=== PATIENT | female | born 1970 | race Caucasian/White ===

== ENCOUNTER 2024-07-16 09:24 | Day surgery (SDC) | payer OTHER ==
[~2024-07-16] VITALS: Ht 165.1 cm; Wt 69.0 kg
[~2024-07-16 09:24] MED LIST: BUPROPION XL150 MG PO; CARAFATE1 GM PO; IBLOOD GLUCOSE TEST STRIP 1 EA TEST VI PRN; LACTATED RINGER'S 1,000 ML IV SCH; LIDOCAINE HCL 1% 5 ML SDV INJ ONE; MIDAZOLAM HCL 5 MG/5 ML VIAL IV PRN; MULTI VITAMIN1 EACH PO; PROTONIX40 MG PO; TURMERIC500 M3 PO; VICODIN 5-3001 EACH PO; fentaNYL citrate 100 MCG/2 ML VIAL IV PRN
[2024-07-16 09:53] VITALS: BP 120/74
[2024-07-16] MEDS ORDERED: fentaNYL citrate 100 MCG/2 ML VIAL ONE (10:33)
[2024-07-16] MEDS ORDERED: MIDAZOLAM HCL 5 MG/5 ML VIAL ONE ×2 (10:33→11:23)
--- NOTE | 2024-07-16 11:54 | NUR ---
07/16/24 1154 Jovanna Cardona 1148-PT TO PACU IN LL POSITION. EYES CLOSED. PT DOES NOT RESPOND TO VERBAL STIMULI. BREATHING EASY AND UNLABORED. SPO2 >95% ON 3 L O2 VIA NC. 1152-PT AWAKENS TO VERBAL AND TACTILE STIMULI. DOES NOT OPEN EYES BUT SHAKES HEAD AND SAYS "NO" WHEN ASKED ABOUT ABDOMINAL PAIN. BREATHING EASY AND UNLABORED. LIGHT INTERMITTANT SNORING. SPO2 >95% ON 3L O2 VIA NC.
[2024-07-16 13:01] VITALS: BP 112/72
--- NOTE | 2024-07-16 16:09 | OR ---
[facility] [address], [place] [address] Signed DATE OF OPERATION: 07/16/2024 SURGEON: Biju Tapia MD PREOPERATIVE DIAGNOSES: Screening. POSTOPERATIVE DIAGNOSES: 1. A 4 mm polyps x2 at 6 cm in rectum. 2. 6 mm and 12 mm polyp at 8 cm in the posterior midline of rectum (clip, tattoo, snare). 3. 7 mm sessile polyp at 5 cm anterior midline of rectum (snare, clip). 4. 4 mm cecal/periappendiceal polyp. 5. 5 mm polyp at proximal transverse colon. 6. 6 mm polyp at 22 cm in sigmoid colon. 7. 4 mm polyp at 10 cm in the rectum. 8. Dnxxelu-[id number] sigmoid diverticulosis. 9. A long redundant colon. 10. Tortuous left and transverse colon. PROCEDURES: 1. Colonoscopy with snare polypectomy x2, hot biopsies, application of clips x2 and injection of tattoo x1. 2. Rigid proctoscopy. ESTIMATED BLOOD LOSS: None. INDICATIONS FOR THE PROCEDURE: Laisha is a 53-year-old female asked to see me for her initial screening colonoscopy. She gives no lower GI complaints. There is no family history of colon cancer or polyps. In the office, I gave her a pamphlet on colonoscopy. We had discussed the nature of the test. There is risk including, but not limited to gas bloating, crampy abdominal pain, bleeding, perforation requiring surgery, and missed diagnosis. We also reviewed the written instructions for the bowel prep line by line. She also understands the need for IV conscious sedation. She understands an adult person asked to take her home afterwards. She had expressed understanding and wished to proceed. DESCRIPTION OF PROCEDURE: Laisha was taken into our endoscopy suite and placed in the left lateral decubitus position. She was given divided doses of 11 mg of Versed and 200 mcg of fentanyl to Electronically Signed By: BIJU TAPIA MD 07/16/24 1609 PATIENT NAME: LAISHA HOFFMAN OPERATIVE REPORT DATE OF : 74 REPORT #: [id number] PHYSICIAN: BIJU TAPIA MD PCP: MECHE CLIFFORD MD REPORT IS CONFIDENTIAL AND NOT TO BE RELEASED WITHOUT AUTHORIZATION [facility] [address], [place] [address] Signed cover this long case. Even then, she does have a long redundant and tortuous colon. She is very close to needing propofol. Fortunately, her prep was good. We had initially made our way to the cecum. We could easily see the appendiceal orifice and ileocecal valve. The above-mentioned polyps have been removed with the help of hot biopsy forceps. We lost one of the polyps either in the proximal transverse colon or possibly the cecum. We did use the snare back at 8 cm and at 5 cm. We put a clip on both of these polypectomy sites. We injected a tattoo at 8 cm. We did see some diverticula in the sigmoid colon. They were moderate in size, few in number and scattered about. We had retroflexed the scope in the rectum and we did not see any obvious pathology immediately above the anal canal. After this, the colonoscope was removed. The rigid proctoscope was then inserted and we quickly found the clip in the anterior midline at 5 cm. It took just a minute to get the rigid proctoscope posteriorly and we found the other clip and tattoo at 8 cm in the posterior midline. It was right on the first haustral fold. After this, the gas was allowed to escape and the rigid proctoscope was removed. Overall, Laisha tolerated the procedure well. RECOMMENDATIONS: I will see Laisha back in my office in 7 to 14 days to review her results. She will need a followup colonoscopy on a short interval given the size and number of polyps that she had. Biju Tapia MD ALB/MODL /[id number] cc: Meche Clifford MD Patient Chart Biju Tapia MD Electronically Signed By: BIJU TAPIA MD 07/16/24 1609 PATIENT NAME: LAISHA HOFFMAN OPERATIVE REPORT DATE OF : 74 REPORT #: [id number] PHYSICIAN: BIJU TAPIA MD PCP: MECHE CLIFFORD MD REPORT IS CONFIDENTIAL AND NOT TO BE RELEASED WITHOUT AUTHORIZATION [facility] [address] [place] [address] [place], [place] [address] Signed Copies: BIJU TAPIA MD ~ Electronically Signed By: BIJU TAPIA MD 07/16/24 1609 PATIENT NAME: LAISHA HOFFMAN OPERATIVE REPORT DATE OF : 74 REPORT #: [id number] PHYSICIAN: BIJU TAPIA MD PCP: MECHE CLIFFORD MD REPORT IS CONFIDENTIAL AND NOT TO BE RELEASED WITHOUT AUTHORIZATION
--- NOTE | 2024-07-18 11:31 | PATH ---
[facility] [address] [place] [address] Signed SPECIMEN(S): A RECTAL POLYP AT 6 CM SPECIMEN(S): B RECTAL POLYP AT 5 CM SPECIMEN(S): C RECTAL POLYP AT 8 CM SPECIMEN(S): D RECTAL POLYP AT 5 CM SPECIMEN(S): E PROXIMAL TRANSVERSE POLYP SPECIMEN(S): F SIGMOID POLYP AT 22 CM SPECIMEN(S): G RECTAL POLYP AT 10 CM SPECIMEN SOURCE: A. RECTAL POLYP AT 6 CM B. RECTAL POLYP AT 5 CM C. RECTAL POLYP AT 8 CM D. RECTAL POLYP AT 5 CM E. PROXIMAL TRANSVERSE POLYP F. SIGMOID POLYP AT 22 CM G. RECTAL POLYP AT 10 CM CLINICAL HISTORY: Screening. Post: Polyps FINAL PATHOLOGIC DIAGNOSIS: A. Rectum, 6 cm, polypectomy: - Hyperplastic polyp B. Rectum, 5 cm, polypectomy: - Tubular adenoma C. Rectum, 8 cm, polypectomies: - Tubular adenoma (multiple fragments) - Hyperplastic polyp (one fragment) D. Rectum, 5 cm, polypectomy: - Hyperplastic polyp E. Colon, proximal transverse, polypectomy: - Hyperplastic polyp F. Colon, sigmoid at 22 cm, polypectomy: - Hyperplastic polyp G. Rectum, 10 cm, polypectomy: - Hyperplastic polyp BRP MICROSCOPIC EXAMINATION: Histologic sections of all submitted blocks are examined by light microscopy. These findings, together with the gross examination, support the pathologic PATIENT NAME: ALLEN HOFFMAN PATHOLOGY DATE OF : 74 REPORT #: [id number] PHYSICIAN: LOY HUDSON PCP: ANA DOAN MD REPORT IS CONFIDENTIAL AND NOT TO BE RELEASED WITHOUT AUTHORIZATION [facility] [address] [place], [place] [address] Signed diagnosis. GROSS DESCRIPTION: A. The specimen, labeled and designated "Hoffman, K, rectal polyp at 6 cm," is received in formalin and consists of two mckeon soft tissue fragments, ranging from 0.2-0.3 cm. Entirely submitted in (A1). B. The specimen, labeled and designated "Hoffman, K, rectal polyp at 5 cm," is received in formalin and consists of five mckeon soft tissue fragments, ranging from 0.2-0.9 cm. Entirely submitted in (B1). C. The specimen, labeled and designated "Hoffman, K, rectal polyps at 8 cm," is received in formalin and consists of multiple mckeon soft tissue fragments, 0.1-0.5 cm. Entirely submitted in (C1). D. The specimen, labeled and designated "Hoffman, K, rectal polyp of 5 cm," is received in formalin and consists of two mckeon soft tissue fragments, ranging from 0.2-0.3 cm. Entirely submitted in (D1). E. The specimen, labeled and designated "Hoffman, K, proximal transverse polyp," is received in formalin and consists of one mckeon soft tissue fragment, 0.2 cm. Entirely submitted in (E1). F. The specimen, labeled and designated "Hoffman, K, sigmoid polyp at 22 cm," is received in formalin and consists of one mckeon soft tissue fragment, 0.3 cm. Entirely submitted in (F1). G. The specimen, labeled and designated "Hoffman, K, rectal polyp at 10 cm," is received in formalin and consists of one mckeon soft tissue fragment, 0.3 cm. Entirely submitted in (G1). AB (under the direct supervision of a pathologist) The Gross Description was prepared using a voice recognition system. The report was reviewed for accuracy; however, sound-alike word errors, addition and/or deletions may occur. If there is any question about this report, please contact Client Services. ADDITIONAL NOTES: Immunohistochemical and/or in situ hybridization studies if performed in this case included appropriate positive controls that reacted as expected. This test was developed and its performance characteristics determined by [facility]. It has not been cleared or approved by the U.S. Food and Drug Administration. The FDA has determined that such clearance or approval is not necessary. This test is used for clinical purposes. It should not be regarded PATIENT NAME: ALLEN HOFFMAN PATHOLOGY DATE OF : 74 REPORT #: [id number] PHYSICIAN: LOY HUDSON PCP: ANA DOAN MD REPORT IS CONFIDENTIAL AND NOT TO BE RELEASED WITHOUT AUTHORIZATION [address] [address] Signed as investigational or for research. [facility] is certified under the Clinical Laboratory Improvement Amendments of 1988 (CLIA) as qualified to perform high complexity clinical laboratory testing. PERFORMING LABORATORY: Technical component was performed by [facility], [address] [place] [id number] (CLIA# [id number]). Professional interpretation was performed by [facility], [address] [address] (CLIA# [id number]). Diagnostician: Anthony Gallardo MD Pathologist Electronically Signed 07/18/2024 Copies: ~ PATIENT NAME: ALLEN HOFFMAN PATHOLOGY DATE OF : 74 REPORT #: [id number] PHYSICIAN: LOY HUDSON PCP: ANA DOAN MD REPORT IS CONFIDENTIAL AND NOT TO BE RELEASED WITHOUT AUTHORIZATION
== END 2024-07-16 13:20 | disposition home or self-care (01) ==
LOC: DS 09:24
PROVIDERS: ATTEND Colon & Rectal Surgery
PROC: 0DBL8ZZ Excision of Transverse Colon, Via Natural or Artificial Opening Endoscopic (ICD-10-PCS; 2024-07-16)
PROC: 0DBN8ZZ Excision of Sigmoid Colon, Via Natural or Artificial Opening Endoscopic (ICD-10-PCS; 2024-07-16)
PROC: 3E0H8KZ Introduction of Other Diagnostic Substance into Lower GI, Via Natural or Artificial Opening Endoscopic (ICD-10-PCS; 2024-07-16)
PROC: 0DJD8ZZ Inspection of Lower Intestinal Tract, Via Natural or Artificial Opening Endoscopic (ICD-10-PCS; 2024-07-16)
PROC: 0DBP8ZZ Excision of Rectum, Via Natural or Artificial Opening Endoscopic (ICD-10-PCS; principal; 2024-07-16 10:30)
DX: Z12.11 Encounter for screening for malignant neoplasm of colon (principal); D12.8 Benign neoplasm of rectum; K62.1 Rectal polyp; K63.5 Polyp of colon; K57.30 Diverticulosis of large intestine without perforation or abscess without bleeding; K63.89 Other specified diseases of intestine; M19.90 Unspecified osteoarthritis, unspecified site; Z87.891 Personal history of nicotine dependence; Z79.899 Other long term (current) drug therapy
CPT/HCPCS: 99153; G0500; J2250; J3010; J7121